=== PATIENT | male | born 1990 | race Caucasian/White ===

== ENCOUNTER 2019-04-08 14:51 | Emergency (ER) | payer SELFPAY ==
[2019-04-08] MEDS: KETOROLAC 30 MG INJ IM (19:13)
[2019-04-08] MEDS: OXYCODONE/ACETAMINOPHEN (5/325) TAB PO (19:14)
[2019-04-08] MEDS: ONDANSETRON (ODT) 4 MG TAB ODT (19:14)
== END 2019-04-08 20:10 | disposition home or self-care (01) ==
LOC: E/R 14:51
DX: F11.23 Opioid dependence with withdrawal (principal)
CPT/HCPCS: 96372; 99284-25